=== PATIENT | female | born 1985 | race Caucasian/White ===

== ENCOUNTER → 2017-12-21 | Outpatient (REF) | payer OTHER ==
[2017-12-21 22:12] LABS: CHLAMYDIA DNA AMPLIFICATION NEGATIVE (NEGATIVE); GC DNA AMPLIFICATION NEGATIVE (NEGATIVE)
== END ==
LOC: M SFHCCLAY 10:41
DX: Z12.4 Encounter for screening for malignant neoplasm of cervix (principal); N76.1 Subacute and chronic vaginitis
CPT/HCPCS: 87591

== ENCOUNTER → 2020-02-06 | Outpatient (REF) | payer OTHER | LOC: M SFHCCLAY 14:25 | PROVIDERS: ATTEND Nurse Practitioner Family | DX: R30.0 Dysuria (principal) ==

== ENCOUNTER → 2020-04-09 | Outpatient (CLI) | payer SELFPAY | LOC: M LABSMTC 10:50 | PROVIDERS: ATTEND Pediatrics | DX: Z20.828 Contact with and (suspected) exposure to other viral communicable diseases (principal); Z11.59 Encounter for screening for other viral diseases ==

== ENCOUNTER → 2021-01-22 | Outpatient (REF) | payer OTHER | LOC: M SFHCCLAY 09:37 | PROVIDERS: ATTEND Physician Assistant | DX: N89.8 Other specified noninflammatory disorders of vagina (principal) ==

== ENCOUNTER → 2021-02-11 | Outpatient (REF) | payer OTHER | LOC: M SFHCCLAY 08:33 | PROVIDERS: ATTEND Physician Assistant | DX: R30.0 Dysuria (principal) ==

== ENCOUNTER → 2021-02-19 | Outpatient (REF) | payer OTHER ==
[2021-02-19 16:27] LABS: FREE THYROXINE INDEX 2.2 % (1.3-4.8); THYROID STIMULATING HORMONE 2.3 uIU/ML (0.358-3.740); THYROXINE (T4) 7.4 UG/DL (4.5-12.0)
== END ==
LOC: M SFHCCLAY 13:51
PROVIDERS: ATTEND Nurse Practitioner Family
DX: E04.9 Nontoxic goiter, unspecified (principal)

== ENCOUNTER → 2021-03-03 | Outpatient (CLI) | payer OTHER ==
--- NOTE | 2021-03-04 07:48 | REP ---
INDICATION: ENLARGED THYOID COMPARISON: None. TECHNIQUE: Yañez scale and color evaluation of the thyroid gland using the linear high frequency transducer. FINDINGS: The thyroid gland is normal in contour, shape, size, and echogenicity. No nodule/mass or cystic abnormalities are appreciated. Right thyroid lobe measures 4.7 x 1.4 x 1.2 cm. Isthmus measures 2 mm in width. Left thyroid lobe measures 4.1 x 1.2 x 1.2 cm. IMPRESSION: Normal thyroid ultrasound. <Electronically signed by Hernan Lawson > 03/04/21 07
== END ==
LOC: M RAD 11:49
PROVIDERS: ATTEND Nurse Practitioner Family
DX: E04.9 Nontoxic goiter, unspecified (principal)

== ENCOUNTER → 2021-06-26 | Outpatient (REF) | payer OTHER | LOC: M LAB REF 17:43 | PROVIDERS: ATTEND Nurse Practitioner Women's Health | DX: Z12.4 Encounter for screening for malignant neoplasm of cervix (principal); R87.611 Atypical squamous cells cannot exclude high grade squamous intraepithelial lesion on cytologic smear of cervix (ASC-H) ==

== ENCOUNTER → 2023-09-27 | Outpatient (REF) | payer OTHER | LOC: M SFHCCLAY 12:24 | PROVIDERS: ATTEND Nurse Practitioner Family | DX: R09.81 Nasal congestion (principal) ==

== ENCOUNTER → 2024-11-08 | Outpatient (REF) | payer OTHER ==
[2024-11-11 14:18] LABS: HPV APTIMA Not Detected (Not Detected)
== END ==
LOC: M SFHCWAGY 17:47
PROVIDERS: ATTEND Nurse Practitioner Family
DX: Z12.4 Encounter for screening for malignant neoplasm of cervix (principal)

== ENCOUNTER → 2024-11-08 | Outpatient (CLI) | payer OTHER | LOC: M WHC 13:03 | PROVIDERS: ATTEND Nurse Practitioner Family | DX: Z12.31 Encounter for screening mammogram for malignant neoplasm of breast (principal); R92.333 Mammographic heterogeneous density, bilateral breasts ==

== ENCOUNTER → 2025-08-08 | Outpatient (REF) | payer OTHER | LOC: M SFHCWAGY 13:03 | PROVIDERS: ATTEND Nurse Practitioner Family | DX: N89.8 Other specified noninflammatory disorders of vagina (principal) ==

== ENCOUNTER → 2025-09-05 | Outpatient (CLI) | payer OTHER | LOC: M WHC 12:02 | PROVIDERS: ATTEND Nurse Practitioner Family | DX: N93.9 Abnormal uterine and vaginal bleeding, unspecified (principal) ==